=== PATIENT | male | born 1960 | race Caucasian/White ===

== ENCOUNTER 2025-04-05 11:24 | Outpatient (CLI) | payer MEDICARE, SELFPAY ==
[2025-04-05 15:55] LABS: Abs Immature Grans 0.03 10^3/uL (0.0-0.06); HCT 42.8 % (40.0-50.0); HGB 14.9 g/dL (13.5-17.5); Immature Grans % 0.4 %; MCH 34.0 pg (27.0-33.0); MCHC 34.8 % (32.0-36.0); MCV 98 fL (80-95); MPV 10.7 fL (8.0-11.0); Platelet Count 253 10^3/uL (130-400); RBC 4.38 10^6/uL (4.36-5.78); RDW 13.3 % (11.8-14.1); RDW-SD 47.8 fL; WBC 7.48 10^3/uL (4.4-10.8)
[2025-04-05 16:05] LABS: Cholesterol 259 mg/dL (<200); HDL Cholesterol 99 mg/dL (>or=40)
[2025-04-05 16:13] LABS: Hemoglobin A1C 4.9 % (<5.7)
[2025-04-05 16:14] LABS: ALT 48 U/L (16-63); AST 46 U/L (15-37); Albumin 4.4 g/dL (3.4-5.0); Alkaline Phosphatase 80 U/L (46-116); Anion Gap 12.3 mmol/L (3-11); BUN 15 mg/dL (7-18); Bilirubin, Total 0.9 mg/dL (0.2-1.0); CO2 24.7 mmol/L (21.0-32.0); Calcium 9.8 mg/dL (8.5-10.1); Chloride 100 mmol/L (98-107); Glucose 95 mg/dL (74-106); Potassium 4.7 mmol/L (3.5-5.1); Sodium 137 mmol/L (136-145); TSH (W/Ref FT4) 2.41 uIU/mL (0.36-3.74); Total Protein 7.8 g/dL (6.4-8.2)
[2025-04-05 16:39] LABS: Uric Acid 4.8 mg/dL (3.5-7.2)
[2025-04-08 09:09] LABS: PSA, Screening 1.2 ng/mL (<=4.5)
[2025-04-08 09:43] LABS: Hepatitis C Ab w Rflx HCV PCR Negative (Negative)
[2025-04-08 09:58] LABS: HIV-1/2 Ag & Ab Screen Negative (Negative)
[2025-04-08 10:14] LABS: HBs Antibody, Quant <3.1 mIU/mL (See Note); Hepatitis B Surface Antigen Negative (Negative)
== END 2025-04-05 11:25 | disposition home or self-care (01) ==
LOC: LOS 11:25
PROVIDERS: PCP Nurse Practitioner Family; Visit Provider Nurse Practitioner Family
DX: M10.9 Gout, unspecified (principal); R73.01 Impaired fasting glucose; I10 Essential (primary) hypertension; Z11.4 Encounter for screening for human immunodeficiency virus [HIV]; Z11.59 Encounter for screening for other viral diseases; Z12.5 Encounter for screening for malignant neoplasm of prostate
CPT/HCPCS: 36415; 80053; 80061; 84153; 86704; 86706; 86803; 87340; 87389; 83036; 84443; 84550; 85025